=== PATIENT | male | born 1955 | race African-American/Black ===

== ENCOUNTER 2023-03-30 15:03 | Emergency (ER) | payer OTHER ==
[~2023-03-30] VITALS: Ht 170.2 cm; Wt 71.7 kg
[2023-03-30 15:13] VITALS: BP 159/106
[2023-03-30] MEDS ORDERED: LIDOCAINE 1% 500 MG/ 50 ML VIAL INJ ONE (15:30)
[2023-03-30] MEDS ORDERED: LIDOCAINE MPF 1% 5 ML ONE (15:34)
[2023-03-30] MEDS ORDERED: CEPH-588 PO (15:52)
[2023-03-30 16:47] VITALS: BP 159/106
== END 2023-03-30 16:49 | disposition home or self-care (01) ==
LOC: MED 15:03
DX: S60.454A Superficial foreign body of right ring finger, initial encounter (principal); W45.8XXA Other foreign body or object entering through skin, initial encounter; Y93.89 Activity, other specified; Y92.89 Other specified places as the place of occurrence of the external cause; Y99.8 Other external cause status
CPT/HCPCS: 10120; 99285; J2001